=== PATIENT | female | born 1935 | race Caucasian/White ===

== ENCOUNTER 2024-05-02 11:49 | Inpatient (IN) | payer MEDICARE, BC, SELFPAY ==
[2024-05-01 14:11] VITALS: BP 111/63
[2024-05-01 14:43] LABS: Urine Albumin Negative (Neg - Trace); Urine Bilirubin Negative (Negative); Urine Character Clear (Clear); Urine Color Yellow; Urine Glucose Negative (Negative); Urine Ketone Negative (Negative); Urine Leukocyte Negative (Negative); Urine Nitrite Positive (Negative); Urine Occult Blood Negative (Negative); Urine Urobilinogen Negative (Neg - 1+)
[2024-05-01 14:49] LABS: % Basophils 0.5 % (0-2); % Immature Granulocytes 0.3 % (0-0.5); % Lymphocytes 30.4 % (20.5-51.1); % Monocytes 9.6 % (1.7-9.3); % Neutrophils 52.2 % (42.2-75.2); Absolute Eosinophils 0.4 10^3/uL (0-0.7); Absolute Lymphocytes 1.9 10^3/uL (1.2-3.4); Absolute Monocytes 0.6 10^3/uL (0.1-0.6); Absolute Neutrophils 3.3 10^3/uL (1.4-6.5); Hematocrit 34.3 % (37.0-47.0); Hemoglobin 11.7 g/dL (12.0-16.0); Mean Corp Hgb Conc. 34.1 g/dL (33.0-37.0); Mean Corpuscular Hgb 29.7 pg (27.0-31.0); Mean Corpuscular Volume 87.1 fL (81.0-99.0); Mean Platelet Volume 9.1 fL (7.4-10.4); Nucleated Red Blood Cells % 0 %; Platelet Count 206 10^3/uL (130-400); Red Blood Cell Count 3.94 10^6/uL (4.20-5.40); Red Cell Dist. Width 13.2 % (11.5-14.5); White Blood Cell Count 6.3 10^3/uL (4.8-10.8)
[2024-05-01 14:59] LABS: Urine Squamous Cell 0-2 /LPF (Few)
[2024-05-01 15:00] LABS: Urine Bacteria Many (Negative); Urine Red Blood Cell 0-2 /HPF (0-2); Urine White Cell 0-2 /HPF (0-5)
[2024-05-01 15:10] LABS: ALT (SGPT) 17 U/L (0-35); AST (SGOT) 22 U/L (14-36); Alkaline Phosphatase 89 U/L (38-126); Blood Urea Nitrogen 25 mg/dl (7-17); Calcium 8.9 mg/dl (8.4-10.2); Carbon Dioxide 22 mmol/L (22-30); Chloride 105 mmol/L (98-107); Glucose 137 mg/dl (70-99); Potassium 3.7 mmol/L (3.5-5.1); Sodium 141 mmol/L (135-145); Total Bilirubin 0.3 mg/dl (0.2-1.3); Total Protein 6.4 g/dl (6.3-8.2); eGFR > 60.00
[2024-05-01 15:30] VITALS: BP 124/66
[2024-05-01 15:56] VITALS: BMI 34.7
--- NOTE | 2024-05-01 16:10 | ED.GENMED ---
History of Present Illness
General
Chief Complaint: Fatigue
Source: fdc
Exam Limitations: none
Time Seen by Provider: 05/01/24 15:15
Nursing documentation reviewed up to this point in time: agreed with
History of Present Illness
History of Present Illness:
88 yr old female sent by [employer] at [place] for change in MS. I spoke with nurse at [facility] who reports that pt has mild dementia however this morning was more confused than normal.
Patient presents awake alert she tells me she has had a cough and she is tired.
Patient is unable to give any other history. She does follow commands and attempts to answer questions.
Past History
Past History
ED Past Medical History: Cancer, Hypercholesterolemia and Hypothyroidism
ED Past Surgical History: Gynecological and Other (Breast surgery)
Patient has exhibited threatening behavior?: No
PSI?: No
Review of Systems
Review of Systems
Allergies reviewed?: Yes
Unable to obtain full review of systems at this time due to: dementia
All Other Systems: ROS reviewed and negative except as documented in HPI and ROS
Constitutional: Reports fatigue
EENT: Reports no symptoms
Respiratory: Reports cough
Cardiac: Reports no symptoms
ABD/GI: Reports no symptoms
Musculoskeletal: Reports no symptoms
Skin: Reports no symptoms
Neurological: Reports other (change in mental status as per nurse at [facility] )
Psychiatric: Reports no symptoms
Phy Exam
General Physical Exam
General Presentation: no apparent distress
General age: appears stated age
General Skin: warm and dry
General Habitus: elderly
General Mental: alert
General Hydration: dry mucous membranes
Cardiovascular Exam
Cardiovascular Exam: regular rate/rhythm, no murmur and normal peripheral pulses
Pulmonary Exam
Pulmonary Exam: lungs clear and no respiratory distress
Neurological Exam
Neurological Exam: alert and oriented x3
Musculoskeletal Exam
Musculoskeletal Exam: full ROM
Skin Exam
Skin Exam: normal color and warm/dry
Psychiatric Exam
Psychiatric Exam: normal mood/affect
Course
Orders/Labs/Results
Orders:
Orders
05/01/24 14:26
Urinalysis Reflex To Culture Urgent
Date Specimen was Collected: 05/01/24
Time Specimen was Collected: 14:22
Urine Microscopic Reflex Cult Urgent
Urine Culture Urgent
JOÉS Source: U
Specimen Description:
Date Specimen was Collected: 05/01/24
Time Specimen was Collected: 14:22
05/01/24 14:38
Complete Blood Count/With Diff Urgent
Comprehensive Metabolic Panel Urgent
05/01/24 Dinner
Regular
05/01/24 16:15
Chest [CR Chest - 2 Views ] Urgent
Comment:
Reason For Exam: cough
05/01/24 16:18
COVID-19 Antigen Urgent
Source: Nasal Swab
Influenza A+B Rapid Molecular Urgent
JOSÉ Source: Nasal Swab
Specimen Description:
05/01/24 16:20
CT Head W/o Iv Contrast Urgent
Comment:
Reason For Exam: change in ms
05/01/24 17:01
0.9% Sodium Chloride 500 ml [Nss] 500 ml IV BOLUS
05/01/24 18:11
CefTRIAXone [Rocephin] 1,000 mg IV NOW STA
05/01/24 18:14
Azithromycin 500 mg/250 ml [Zithromax Infusion] 500 mg in 250 ml IV NOW
05/01/24 19:16
Admit/Transfer Patient As Directed
Co-Sign Provider:
Level of Care: Observation services
Assign to:: Medical/Surgical
Physician / Group: Yves Majano
Diagnosis: Pneumonia/bronchitis
Code Status As Directed
Resuscitation Status: Full Code
PRN Pain Medication Management As Directed
May give lesser potent ordered pain med per pt: Yes
preference::
Protocol:: Medication orders for pain may be administered in a
manner that supports deferring to patient preference
when the pt is:
- Requesting an ordered lesser potent pain medication.
Least to most potent pain medications are defined
as: acetaminophen < NSAID < tramadol < opioids
(morphine, oxycodone, hydromorphone).
- Requesting a lesser dose of the same medication IF
ORDERED.
- Requesting a less intrusive route of administration
if both routes are prescribed by the provider (PO <
IV).
05/01/24 19:20
US Periph Venous LOWER Ext LT Urgent
Comment:
Reason For Exam: LLE edema
05/01/24 19:28
Procalcitonin Routine
PCT Algorithmm Indication: Respiratory
05/01/24 20:36
TSH Routine
Azithromycin 500 mg IVPB Q24H
Ipratropium/Albuterol Sulfate [Duoneb] 3 ml INH R Q4HPRN PRN
Activity As Directed
Activity Level: Out of Bed-Early Mobility
Intake/ Output As Directed
Frequency: Per unit guidelines
Vital Signs As Directed
Frequency: Per unit guidelines
Weight As Directed
Frequency: Once
Comment: on admission
Pt Eval And Treat Routine
Activity Level: With Assistance
DX Deep Vein Thrombosis Video Routine
05/02/24 06:00
Basic Metabolic Panel IN AM
Complete Blood Count/No Diff IN AM
05/02/24 18:00
Enoxaparin Sodium [Lovenox] 40 mg SC QPM
Abnormal Lab Results
05/01/24 05/01/24
14:26 14:38
RBC 3.94 L 10^6/uL
(4.20-5.40)
Hgb 11.7 L g/dL
(12.0-16.0)
Hct 34.3 L %
(37.0-47.0)
Monocytes % 9.6 H %
(1.7-9.3)
Eosinophils % 7.0 H %
(0-6)
BUN 25 H mg/dl
(7-17)
Glucose 137 H mg/dl
(70-99)
Urine Nitrite (Reflex) Positive A
(Negative)
Urine Bacteria (Reflex) Many A
(Negative)
05/01/24 14:38
05/01/24 14:38
Vital Signs
Initial and Last Documented VS:
Initial Vital Signs
Temp Pulse Resp BP Pulse Ox
97.6 F 80 16 111/63 93
05/01/24 14:11 05/01/24 14:11 05/01/24 14:11 05/01/24 14:11 05/01/24 14:11
Last Documented Vital Signs
Temp Pulse Resp BP Pulse Ox
97.6 F 82 19 149/80 95
05/01/24 14:11 05/01/24 19:16 05/01/24 19:16 05/01/24 19:16 05/01/24 15:30
MDM/Problems Addressed
MDM/Problems Addressed:
Patient is an 88-year-old female from [facility] at [place] who presented for increasing confusion fatigue. Patient presents awake alert she is oriented to me and answering questions she complains of fatigue and cough. X-ray shows mild bibasilar
interstitial pneumonitis. With symptoms and fatigue will admit and treat with antibiotics. ct head neg
*Radiology
Radiology exam reviewed: radiology read reviewed
*Pulse Oximetry
Patient hypoxic: no
*Critical Care Note
Total Time (30-74mins, 75-104mins- exclusive of procedures): Not Applicable
ED Attending Note
-
Portions of this chart may have been created with voice recognition software.� Occasional wrong word or��sound alike� substitutions may have occurred due to the inherent limitations of voice recognition software.
Discharge Plan
Departure
Patient Disposition: Admit
Date of Disposition: 05/01/24
Time of Disposition: 18:50
Admit to: Med/Surg
Admit to doctor: hospitalits
Presentation/result/management discussed w/ accepting MD/DO: Hospitalist
Patient with high blood pressure during this ER visit?: No
Condition: Fair
Covid-19: Not Applicable
Discharge Problem:
Pneumonia
Interventions
Interventions:
*Risk Screen - Suicide Last Done: 05/01/24 14:20
*General Assessment Last Done: 05/01/24 14:20
*Neglect/Abuse Screening Last Done: 05/01/24 14:20
ED- Fall Risk Assessment Last Done: 05/01/24 16:28
*Nursing Disposition Last Done: 05/01/24 20:12
ED- Cardiac Assessment Last Done: 05/01/24 15:30
ED- Pulmonary Assessment Last Done: 05/01/24 15:30
[2024-05-01 16:38] LABS: COVID-19 Antigen Negative (Negative)
[2024-05-01] MEDS: NSS 500 IV (17:24)
--- NOTE | 2024-05-01 18:35 | HPS.HSE ---
Family Physician
-
Family Physician: * NONE
Chief Complaint
-
Change in mental status
History of Present Illness
Patient is an 88-year-old female with past medical history significant for hyperlipidemia and hypothyroidism who presented to [place] ED for evaluation of dementia, hyperlipidemia and hypothyroidism who was sent to [place] ED for evaluation of
change in mental status. Patient was unable to recall reasons that facility staff sent her to ED for evaluation.
Medical History
Past Medical History
Past Medical History: Reports Other
Additional Past Medical History:
Dementia
Hyperlipidemia
Hypothyroidism
Breast cancer
Past Surgical History: Reports Other
Additional Past Surgical History:
Right breast lumpectomy
hysterectomy
B/L knee replacement
Social History
Unable to obtain full social history at this time due to: Dementia
Family History
Family History: Unable to Obtain (dementia)
Allergies / Home Medications
Allergies reflects when Allergies were last updated in [employer].
Home Medications with original date entered in [employer]
Allergy/Medication List:
Allergies
Allergy/AdvReac Type Severity Reaction Status Date / Time
aspirin [From Aggrenox] Allergy Vomiting Verified 05/01/24 14:12
dipyridamole [From Aggrenox] Allergy Vomiting Verified 05/01/24 14:12
ibuprofen [From Motrin] Allergy Vomiting Verified 05/01/24 14:12
oxycodone Allergy Vomiting Verified 05/01/24 14:12
Home Medications
cholecalciferol (vitamin D3) 50 mcg (2,000 unit) tablet 2,000 unit PO DAILY 07/29/14
aspirin 81 mg tablet,delayed release 81 mg PO DAILY 05/01/24
carboxymethylcellulose sodium 0.5 % eye drops (Refresh Tears) 1 drp BOTH EYES QID 05/01/24
docusate sodium 100 mg capsule (Colace) 200 mg PO HS 05/01/24
duloxetine 20 mg capsule,delayed release 20 mg PO DAILY 05/01/24
duloxetine 60 mg capsule,delayed release 60 mg PO DAILY 05/01/24
gabapentin 400 mg capsule 400 mg PO TID 05/01/24
hydrochlorothiazide 25 mg tablet 25 mg PO DAILY 05/01/24
levothyroxine 75 mcg tablet 74 mcg PO DAILY 05/01/24
losartan 50 mg tablet 50 mg PO HS 05/01/24
melatonin 3 mg tablet 3 mg PO HS 05/01/24
meloxicam 15 mg tablet 15 mg PO DAILY 05/01/24
metoprolol succinate 25 mg tablet,extended release 24 hr 25 mg PO DAILY 05/01/24
rosuvastatin 5 mg tablet 5 mg PO QPM 05/01/24
sennosides 8.6 mg tablet (senna) 17.2 mg PO HS 05/01/24
vit C 250 mg-vit E 90 mg-zinc 40 mg-copper 1 lo-lixzkh-zfupaq capsule (PreserVision AREDS-2) 1 cap PO BID 05/01/24
Review of Systems
-
Unable to obtain full review of systems at this time due to: Dementia
Physical Exam
Vital Signs
Vital Signs
Temp Pulse Resp BP Pulse Ox
97.6 F 82 16 124/66 95
05/01/24 14:11 05/01/24 15:30 05/01/24 15:30 05/01/24 15:30 05/01/24 15:30
Physical Exam
General: Well Developed, Well Nourished, No Apparent Distress, Comfortable and Conversant
HEENT: NormoCephalic, Moist mucous membranes, Atraumatic, PERRLA, Nose Appears Normal and Ears Appear Normal
Respiratory: Wheezes, Non Labored Respirations and Decreased Breath Sounds
Cardiac: S1/S2 and Regular Rhythm; No Murmur, Rub or Gallop
Breast: Deferred by me
GI: Soft, Non Tender, Non Distended and Normal Bowel Sounds; No Organomegaly
Rectal: Deferred by Provider
Genito-urinary: Deferred by me
Musculoskeletal: No Clubbing, No Cyanosis and No Edema
Skin: Warm, Dry and IV/Catheter Site; No Rash
Neuro: Awake, Alert and Nonfocal/grossly intact
Hematologic/Lymphatic: No Lymphadenopathy
Psych: Calm and Confused
Laboratory Results
-
05/01/24 14:38
05/01/24 14:38
Laboratory Results
Total Bilirubin 0.3 mg/dl (0.2-1.3) 05/01/24 14:38
AST 22 U/L (14-36) 05/01/24 14:38
ALT 17 U/L (0-35) 05/01/24 14:38
Alkaline Phosphatase 89 U/L (38-126) 05/01/24 14:38
Data Reviewed
-
Diagnostic Radiology: Report Reviewed by me (CXR: Suspect mild bibasilar interstitial pneumonitis.)
CT Scan: Report Reviewed by me (Head: No acute intracranial abnormality noted.)
Lab Data: Labs Reviewed by me
Impression/Plan
-
IMPRESSION/PLAN:
#Pneumonia vs. bronchitis
- Admit to M/S
- check ProCal
- IV Azithromycin
- PRN DuoNebs
#Lower left extremity edema
- cellulitis? DVT?
- LLE US pending
#Dementia
- continue duloxetine
#Hyperlipidemia
- pravastatin
#Hypothyroidism
- check TSH
- continue Synthroid
#Breast cancer
Full Code
DVT Px: Lovenox Sq
--- NOTE | 2024-05-01 18:55 | W.PN.UPDATE ---
Update Note
Progress Note Update
Patient seen in conjunction with THEODORA. I agree with her findings on history and physical. I concur with the assessment and plan unless stated otherwise.
This is a 88 y/o female with history of hypothyroid, mild demential, hld presenting from assisted living with confusion compared to baseline. She reports fatigue and cough for about 1-1/2 weeks. She says the cough is nonproductive. She also
reports some nasal congestion. Denies any sore throat. She reports fatigue but no shortness of breath or dyspnea on exertion at rest. She states she is mostly sleepy and tired. She reports recent falls and fracture of the left femur s/p surgery.
Has had pain and swelling in the left leg since. Reports ambulatory dysfunction, pain with weight bearing and some redness over the ankle. Itchy and she has been scratching it. Denies history of tobacco use, asthma or COPD. She denies any chest
pain, lightheadedness or dizziness. Denies swallowing difficulties. There has been no recent diarrhea.
In the emergency department the patient was afebrile, blood pressure was normal at 124/66, pulse was 68 and she was satting at 95% on room air. # X-ray shows bibasilar interstitial pneumonitis, CT head was negative, CBC was unremarkable with a
white count of 6.3 hemoglobin of 11.7 and platelet count of 200. Electrolytes BUN/creatinine were within normal limits. UA was mostly negative with bacteria and nitrites but no leukocyte esterase or pyuria. Influenza and COVID are negative.
On my exam she has bibasilar end expiratory wheezes and squeaks. There is left ankle edema and mild erythema with tenderness to palpation
A&P
1. PNA - bilateral pneumonitis on Xray. Suspect bronchitis with some reactive component and end expiratory tightness. Not on oxygen, denies SOB at rest. No fevers, chills or leukocytosis.
- admit to med/surg
- azithromycin iv for now
- nebs, incentive spirometry
- check procalcitonin
2. Ankle Swelling - S/P knee surgery. Leg edema and ankle erythema
- check LLE u/s
- keep leg elevated
- no obvious cellulitis but serial examination reasonable
3. Hypothyroid - fatigue and sleepiness
- check tsh
- continue synthroid
PT eval
DVT PPX - lovenox sq
Code - Status - awaiting documents, presumptive full code
[2024-05-01 19:16] VITALS: BP 149/80
[2024-05-01] MEDS: ROCEPHIN 1000 MG IV (19:18)
[2024-05-01] MEDS: ZITHROMAX INFUSION 250 IV (19:18)
[2024-05-01 20:03] LABS: Procalcitonin < 0.05 ng/ml (0.0-0.25)
--- NOTE | 2024-05-01 20:23 | PHANOTE ---
med rec tech(05/01/24)-Attempted to get paperwork faxed over, called 18:42,19:27,19:38, and called back by snf, but unable to successfully fax over medications. Utilized [employer] to compile list.
[2024-05-01 20:55] VITALS: BP 152/86; BMI 34.2
--- NOTE | 2024-05-01 21:00 | PTCARENOTE ---
Patient arrived from the ED via stretcher. Patient pulled over onto the bed by staff. Incontinent of urine, purewick in place. Patient AAOx3, forgetful. VSS. Patient is currently nauseous and vomiting. [employer] made aware. Antiemetic ordered see MAR.
Patient oriented to the room , educated on plan of care. Takes pills fine with water. Call chandler is within reach.
[2024-05-01] MEDS: COZAAR 50 MG PO (21:39)
[2024-05-01] MEDS: REGLAN 10 MG IV (21:40)
[2024-05-01 23:00] LABS: TSH 2.24 uIU/ml (0.47-4.68)
[2024-05-01 23:13] VITALS: BP 145/67
[2024-05-02 07:24] VITALS: BP 114/75
--- NOTE | 2024-05-02 07:24 | W.PN.HOSP.TC ---
Today's Communication/Plan
-
PT/OT
Fall precautions
discharge planning SNF rehab
IV azithromycin switched to PO
Blood Pressure control
Assessment / Plan
Assessment / Plan
Physical Exam
General: No Apparent Distress, Comfortable and Conversant, Obese
HEENT: NormoCephalic, Moist mucous membranes, Atraumatic, PERRLA
Respiratory: clear to auscultation b/l
Cardiac: S1/S2 and Regular Rhythm; No Murmur, Rub or Gallop
GI: Soft, Non Tender, Non Distended and Bowel sounds present
Musculoskeletal: No Clubbing, No Cyanosis and No Edema
Skin: Warm, Dry and IV/Catheter Site; No Rash
Neuro:AOx3 though some confusion memory issues noted
Psych: Calm, cooperative, mild confusion
88F with past medical history significant for hyperlipidemia and hypothyroidism who presented to [place] ED for evaluation dementia, hyperlipidemia and hypothyroidism, sent to [place] ED for evaluation of AMS. Patient was unable to recall
reasons that facility staff sent her to ED for evaluation.
#Pneumonia vs. bronchitis
- ProCal neg
- IV Azithromycin switched to PO 250 mg daily for anti-inflammatory effects
- PRN DuoNebs
-stable respiratory status room air
#Lower left extremity edema noted on ED presentation per reports, appears resolved at this time.
#Hx Lt knee replacement
- LLE US appreciated no DVT
-PT/OT appreciated SNF rehab
#Dementia
- continue duloxetine
#Hyperlipidemia
- pravastatin
#Hypothyroidism
- TSH wnl
- continue Synthroid
#Breast cancer
Full Code
DVT Px: Lovenox Sq
I spent a total of 35 minutes with the patient or on the floor. More than 50% of this time involved counseling and coordination of care.
Anticipated Discharge: Within 24 hours
Subjective/Interval History
-
Date of Service: May 02, 2024
No acute distress appears well denies new acute issues at this time. AOx3 though some confusion short term memory issues noted.
Objective Data
-
Labs:
Laboratory Results
05/02/24
06:00
WBC Pending
Hgb Pending
Hct Pending
Plt Count Pending
Sodium Pending
Potassium Pending
Chloride Pending
Carbon Dioxide Pending
BUN Pending
Creatinine Pending
Glucose Pending
Calcium Pending
Vital Signs:
Vital Signs
Temp Pulse Resp BP Pulse Ox
98.0 F 84 18 145/67 92
05/01/24 23:13 05/01/24 23:13 05/01/24 23:13 05/01/24 23:13 05/01/24 23:13
[2024-05-02] MEDS: ORETIC 25 MG PO (07:49)
[2024-05-02] MEDS: ASPIR LOW (ENTERIC COATED) 81 MG PO (07:49)
[2024-05-02] MEDS: TOPROL XL 25 MG PO (07:49)
[2024-05-02] MEDS: SYNTHROID 75 MCG PO (07:50)
[2024-05-02 08:12] LABS: Hematocrit 33.7 % (37.0-47.0); Hemoglobin 11.1 g/dL (12.0-16.0); Mean Corp Hgb Conc. 32.9 g/dL (33.0-37.0); Mean Corpuscular Hgb 30.3 pg (27.0-31.0); Mean Corpuscular Volume 92.1 fL (81.0-99.0); Mean Platelet Volume 9.2 fL (7.4-10.4); Platelet Count 201 10^3/uL (130-400); Red Blood Cell Count 3.66 10^6/uL (4.20-5.40); Red Cell Dist. Width 13.3 % (11.5-14.5); White Blood Cell Count 5.3 10^3/uL (4.8-10.8)
[2024-05-02 08:56] LABS: Blood Urea Nitrogen 25 mg/dl (7-17); Calcium 8.7 mg/dl (8.4-10.2); Carbon Dioxide 26 mmol/L (22-30); Chloride 104 mmol/L (98-107); Estimated Creatinine Clearance 60 ml/min; Glucose 114 mg/dl (70-99); Potassium 3.7 mmol/L (3.5-5.1); Sodium 142 mmol/L (135-145); eGFR > 60.00
[2024-05-02 09:30] VITALS: BP 118/72; PULSE 77; O2SAT 95
[2024-05-02 15:44] VITALS: BP 133/82
--- NOTE | 2024-05-02 16:37 | CM ---
Late note from this morning:
Miriam lives at [facility] and was hoping to go back at discharge. CM met with Miriam to discuss discharge plans; spoke with Mynor, her POA, who is agreeable to SNF and requests [facility] or [facility].
CM to follow for SNF transfer when medically ready.
[2024-05-02] MEDS: LOVENOX 40 MG SC (17:06)
[2024-05-02] MEDS: ZITHROMAX 250 MG PO (17:07)
--- NOTE | 2024-05-02 17:21 | PTCARENOTE ---
Patient confused, states she wants to go home. Pt removed IV. No IV medications ordered at this time. Bed alarm on. Plan of care ongoing.
[2024-05-02] MEDS: TIGAN 200 MG IM (20:12)
[2024-05-02] MEDS: COZAAR PO (21:53)
[2024-05-02 23:26] VITALS: BP 129/85
[2024-05-03] MEDS: ZOFRAN ODT (ORALLY DISINTEGRATING) 2 MG PO (02:15)
[2024-05-03] MEDS: DULCOLAX 10 MG RECTAL (02:46)
--- NOTE | 2024-05-03 07:21 | W.PN.HOSP.TC ---
Today's Communication/Plan
-
pain control
PT/OT
discharge planning SNF rehab
Assessment / Plan
Assessment / Plan
Physical Exam
General: No Apparent Distress, Comfortable and Conversant, Obese
HEENT: NormoCephalic, Moist mucous membranes, Atraumatic, PERRLA
Respiratory: clear to auscultation b/l
Cardiac: S1/S2 and Regular Rhythm; No Murmur, Rub or Gallop
GI: Soft, Non Tender, Non Distended and Bowel sounds present
Musculoskeletal: No Clubbing, No Cyanosis and No Edema
Skin: Warm, Dry and IV/Catheter Site; No Rash
Neuro:AOx3 though some confusion memory issues noted
Psych: Calm, cooperative, mild confusion
88F with past medical history significant for hyperlipidemia and hypothyroidism who presented to [place] ED for evaluation dementia, hyperlipidemia and hypothyroidism, sent to [place] ED for evaluation of AMS. Patient was unable to recall
reasons that facility staff sent her to ED for evaluation.
#Pneumonia vs. bronchitis
- ProCal neg
- IV Azithromycin switched to PO 250 mg daily for anti-inflammatory effects planned for total 5 days treatment (05/05 last day)
- PRN DuoNebs
-stable respiratory status room air
#Lower left extremity edema noted on ED presentation per reports, appears resolved at this time.
#Hx Lt knee replacement
- LLE US appreciated no DVT
-PT/OT appreciated SNF rehab
#Neuropathy
home pain meds resumed duloxetine, gabapentin, meloxicam
#Dementia
#Hyperlipidemia
- pravastatin
#Hypothyroidism
- TSH wnl
- continue Synthroid
#Breast cancer
PT/OT appreciated SNF rehab
Full Code
DVT Px: Lovenox Sq
Medically stable for discharge pending SNF rehab placement
discussed with patient and patient's nephew AMPARO Lowe
I spent a total of 35 minutes with the patient or on the floor. More than 50% of this time involved counseling and coordination of care.
Anticipated Discharge: Within 24 hours
Subjective/Interval History
-
Date of Service: May 03, 2024
No acute distress resting comfortably in bed. Reports lower extremities pain burning likely neuropathy. Home pain meds resumed.
Objective Data
-
Vital Signs:
Vital Signs
Temp Pulse Resp BP Pulse Ox
98.3 F 81 17 129/85 97
05/02/24 23:26 05/02/24 23:26 05/02/24 23:26 05/02/24 23:26 05/02/24 23:26
I&O
05/02/24 05/03/24 05/04/24
06:59 06:59 06:59
Intake Total 600 / 600
Output Total 500 / 500
Balance 100 / 100
[2024-05-03 07:35] VITALS: BP 152/84
[2024-05-03] MEDS: SYNTHROID 75 MCG PO (08:13)
[2024-05-03] MEDS: ORETIC 25 MG PO (08:13)
[2024-05-03] MEDS: ASPIR LOW (ENTERIC COATED) 81 MG PO (08:13)
[2024-05-03] MEDS: TOPROL XL 25 MG PO (08:13)
--- NOTE | 2024-05-03 09:39 | PTOTSP ---
Speech Therapy Swallowing Assessment
No overt signs of aspiration during bedside assessment.
Recommend
1. Continue regular solids and thin liquids
2. Meds with liquid as tolerated.
3. General swallowing precautions including upright position and slow rate of intake.
No skilled ST indicated at this time.
[2024-05-03] MEDS: CYMBALTA DELAYED RELEASE 60 MG PO (10:26)
[2024-05-03] MEDS: NEURONTIN 400 MG PO ×3 (10:26→21:05)
[2024-05-03] MEDS: CYMBALTA DELAYED RELEASE 20 MG PO (10:26)
[2024-05-03] MEDS: MOBIC 15 MG PO (10:26)
[2024-05-03] MEDS: REFRESH CELLUVISC GEL 1 DROPS BOTH EYES ×3 (12:29→21:05)
[2024-05-03 15:02] VITALS: BP 152/58; PULSE 80
[2024-05-03 15:20] VITALS: BP 150/94
--- NOTE | 2024-05-03 17:11 | CM ---
CM met with Miriam and spoke with her POA regarding discharge plans. SNF is requested, [facility] and [facility]. Referrals sent via [facility].
CM to follow to coordinate SNF when medically ready.
[2024-05-03] MEDS: LOVENOX 40 MG SC (17:12)
[2024-05-03] MEDS: ZITHROMAX 250 MG PO (17:12)
[2024-05-03] MEDS: COLACE 200 MG PO (21:06)
[2024-05-03] MEDS: COZAAR 50 MG PO (21:07)
[2024-05-03] MEDS: SENOKOT 17.2 MG PO (21:07)
[2024-05-03 23:39] VITALS: BP 160/91
[2024-05-04 06:58] LABS: Hemoglobin 11.6 g/dL (12.0-16.0); Mean Corp Hgb Conc. 33.1 g/dL (33.0-37.0); Mean Corpuscular Hgb 29.7 pg (27.0-31.0); Mean Corpuscular Volume 89.5 fL (81.0-99.0); Mean Platelet Volume 9.5 fL (7.4-10.4); Platelet Count 227 10^3/uL (130-400); Red Blood Cell Count 3.91 10^6/uL (4.20-5.40); Red Cell Dist. Width 13.3 % (11.5-14.5); White Blood Cell Count 5.5 10^3/uL (4.8-10.8)
[2024-05-04 07:30] VITALS: BP 135/80
[2024-05-04 07:37] LABS: Blood Urea Nitrogen 23 mg/dl (7-17); Calcium 9.3 mg/dl (8.4-10.2); Carbon Dioxide 30 mmol/L (22-30); Chloride 101 mmol/L (98-107); Estimated Creatinine Clearance 53 ml/min; Glucose 124 mg/dl (70-99); Phosphorus 4.4 mg/dl (2.5-4.5); Potassium 3.8 mmol/L (3.5-5.1); Sodium 141 mmol/L (135-145); eGFR > 60.00
--- NOTE | 2024-05-04 07:40 | W.PN.HOSP.TC ---
Today's Communication/Plan
-
medically stable for discharge SNF rehab pending placement
Assessment / Plan
Assessment / Plan
Physical Exam
General: No Apparent Distress, Comfortable and Conversant, Obese
HEENT: NormoCephalic, Moist mucous membranes, Atraumatic, PERRLA
Respiratory: clear to auscultation b/l
Cardiac: S1/S2 and Regular Rhythm; No Murmur, Rub or Gallop
GI: Soft, Non Tender, Non Distended and Bowel sounds present
Musculoskeletal: No Clubbing, No Cyanosis and No Edema
Skin: Warm, Dry and IV/Catheter Site; No Rash
Neuro:AOx3 though some confusion memory issues noted
Psych: Calm, cooperative, mild confusion
88F with past medical history significant for hyperlipidemia and hypothyroidism who presented to [place] ED for evaluation dementia, hyperlipidemia and hypothyroidism, sent to [place] ED for evaluation of AMS. Patient was unable to recall
reasons that facility staff sent her to ED for evaluation.
#Pneumonia vs. bronchitis
- ProCal neg
- IV Azithromycin switched to PO 250 mg daily for anti-inflammatory effects planned for total 5 days treatment (05/05 last day)
- PRN DuoNebs
-stable respiratory status room air
#Lower left extremity edema noted on ED presentation per reports, appears resolved at this time.
#Hx Lt knee replacement
- LLE US appreciated no DVT
-PT/OT appreciated SNF rehab
#Neuropathy
home pain meds resumed duloxetine, gabapentin, meloxicam
#Dementia
#Hyperlipidemia
- pravastatin
#Hypothyroidism
- TSH wnl
- continue Synthroid
#Breast cancer
PT/OT appreciated SNF rehab
Full Code
DVT Px: Lovenox Sq
Medically stable for discharge pending SNF rehab placement
discussed with patient and patient's nephew AMPARO Lowe
I spent a total of 35 minutes with the patient or on the floor. More than 50% of this time involved counseling and coordination of care.
Anticipated Discharge: Within 24 hours
Subjective/Interval History
-
Date of Service: May 04, 2024
No acute distress. Appears comfortable at this time. Lower extremities pain improved. No new acute issues.
Objective Data
-
Labs:
Laboratory Results
05/04/24
05:58
WBC 5.5
Hgb 11.6 L
Hct 35.0 L
Plt Count 227
Sodium 141
Potassium 3.8
Chloride 101
Carbon Dioxide 30
BUN 23 H
Creatinine 0.9
Glucose 124 H
Calcium 9.3
Vital Signs:
Vital Signs
Temp Pulse Resp BP Pulse Ox
97.8 F 79 18 160/91 93
05/03/24 23:39 05/03/24 23:39 05/03/24 23:39 05/03/24 23:39 05/03/24 23:39
I&O
05/03/24 05/04/24 05/05/24
06:59 06:59 05:59
Intake Total 600 / 600 360 / 360
Output Total 500 / 500
Balance 100 / 100 360 / 360
[2024-05-04] MEDS: VITAMIN D3 (cholecalciferol) 50 MCG PO (08:24)
[2024-05-04] MEDS: MOBIC 15 MG PO (08:24)
[2024-05-04] MEDS: REFRESH CELLUVISC GEL 1 DROPS BOTH EYES ×4 (08:24→20:22)
[2024-05-04] MEDS: CYMBALTA DELAYED RELEASE 60 MG PO (08:24)
[2024-05-04] MEDS: ASPIR LOW (ENTERIC COATED) 81 MG PO (08:24)
[2024-05-04] MEDS: ORETIC 25 MG PO (08:24)
[2024-05-04] MEDS: CYMBALTA DELAYED RELEASE 20 MG PO (08:24)
[2024-05-04] MEDS: NEURONTIN 400 MG PO ×3 (08:24→20:23)
[2024-05-04] MEDS: TOPROL XL 25 MG PO (08:24)
[2024-05-04] MEDS: SYNTHROID 75 MCG PO (08:25)
[2024-05-04 15:30] VITALS: BP 139/79
[2024-05-04] MEDS: ZITHROMAX 250 MG PO (17:17)
[2024-05-04] MEDS: LOVENOX 40 MG SC (17:17)
[2024-05-04] MEDS: SENOKOT 17.2 MG PO (20:22)
[2024-05-04] MEDS: COZAAR 50 MG PO (20:22)
[2024-05-04] MEDS: COLACE 200 MG PO (20:23)
[2024-05-04 23:46] VITALS: BP 128/74
--- NOTE | 2024-05-05 06:40 | W.PN.HOSP.TC ---
Today's Communication/Plan
-
Medically stable for discharge pending SNF rehab placement
Assessment / Plan
Assessment / Plan
Physical Exam
General: No Apparent Distress, Comfortable and Conversant, Obese
HEENT: NormoCephalic, Moist mucous membranes, Atraumatic, PERRLA
Respiratory: clear to auscultation b/l
Cardiac: S1/S2 and Regular Rhythm; No Murmur, Rub or Gallop
GI: Soft, Non Tender, Non Distended and Bowel sounds present
Musculoskeletal: No Clubbing, No Cyanosis and No Edema
Skin: Warm, Dry and IV/Catheter Site; No Rash
Neuro:AOx3 though some confusion memory issues noted
Psych: Calm, cooperative, mild confusion
88F with past medical history significant for hyperlipidemia and hypothyroidism who presented to [facility] for evaluation dementia, hyperlipidemia and hypothyroidism, sent to [facility] for evaluation of AMS. Patient was unable to recall
reasons that facility staff sent her to ED for evaluation.
#Pneumonia vs. bronchitis
- ProCal neg
- IV Azithromycin switched to PO 250 mg daily for anti-inflammatory effects planned for total 5 days treatment (05/05 last day) completed
- PRN DuoNebs
-stable respiratory status room air
#Lower left extremity edema noted on ED presentation per reports, appears resolved at this time.
#Hx Lt knee replacement
- LLE US appreciated no DVT
-PT/OT appreciated SNF rehab
#Neuropathy
home pain meds resumed duloxetine, gabapentin, meloxicam
#Dementia
#Hyperlipidemia
- pravastatin
#Hypothyroidism
- TSH wnl
- continue Synthroid
#Breast cancer
PT/OT appreciated SNF rehab
Full Code
DVT Px: Lovenox Sq
Medically stable for discharge pending SNF rehab placement
discussed with patient and patient's nephew AMPARO Lowe
I spent a total of 35 minutes with the patient or on the floor. More than 50% of this time involved counseling and coordination of care.
Anticipated Discharge: Within 24 hours
Subjective/Interval History
-
Date of Service: May 05, 2024
No acute distress. Appears comfortable at this time. Denies new acute issues. Pain well controlled with current regimen
Objective Data
-
Vital Signs:
Vital Signs
Temp Pulse Resp BP Pulse Ox
98.4 F 77 18 128/74 93
05/04/24 23:46 05/04/24 23:46 05/04/24 23:46 05/04/24 23:46 05/04/24 23:46
I&O
05/03/24 05/04/24 05/05/24
06:59 06:59 05:59
Intake Total 600 / 600 360 / 360 480 / 480
Output Total 500 / 500 1700 / 1700
Balance 100 / 100 360 / 360 -1220 / -1220
[2024-05-05 07:58] VITALS: BP 170/87
[2024-05-05] MEDS: REFRESH CELLUVISC GEL 1 DROPS BOTH EYES ×4 (08:09→21:05)
[2024-05-05] MEDS: TOPROL XL 25 MG PO (08:09)
[2024-05-05] MEDS: CYMBALTA DELAYED RELEASE 60 MG PO (08:09)
[2024-05-05] MEDS: CYMBALTA DELAYED RELEASE 20 MG PO (08:09)
[2024-05-05] MEDS: NEURONTIN 400 MG PO ×3 (08:09→21:05)
[2024-05-05] MEDS: ORETIC 25 MG PO (08:09)
[2024-05-05] MEDS: ASPIR LOW (ENTERIC COATED) 81 MG PO (08:09)
[2024-05-05] MEDS: MOBIC 15 MG PO (08:09)
[2024-05-05] MEDS: SYNTHROID 75 MCG PO (08:10)
[2024-05-05] MEDS: VITAMIN D3 (cholecalciferol) 50 MCG PO (08:10)
[2024-05-05] MEDS: NORVASC 2.5 MG PO (12:05)
[2024-05-05 15:55] VITALS: BP 154/79
[2024-05-05] MEDS: ZITHROMAX 250 MG PO (17:31)
[2024-05-05] MEDS: LOVENOX 40 MG SC (17:31)
[2024-05-05] MEDS: SENOKOT 17.2 MG PO (21:05)
[2024-05-05] MEDS: COZAAR 50 MG PO (21:05)
[2024-05-05] MEDS: COLACE 200 MG PO (21:05)
[2024-05-05 23:26] VITALS: BP 113/67
[2024-05-06 07:41] VITALS: BP 138/80
[2024-05-06] MEDS: NEURONTIN 400 MG PO ×3 (08:10→20:43)
[2024-05-06] MEDS: ASPIR LOW (ENTERIC COATED) 81 MG PO (08:10)
[2024-05-06] MEDS: VITAMIN D3 (cholecalciferol) 50 MCG PO (08:10)
[2024-05-06] MEDS: TOPROL XL 25 MG PO (08:10)
[2024-05-06] MEDS: ORETIC 25 MG PO (08:10)
[2024-05-06] MEDS: NORVASC 2.5 MG PO (08:10)
[2024-05-06] MEDS: MOBIC 15 MG PO (08:11)
[2024-05-06] MEDS: CYMBALTA DELAYED RELEASE 60 MG PO (08:11)
[2024-05-06] MEDS: CYMBALTA DELAYED RELEASE 20 MG PO (08:11)
[2024-05-06] MEDS: REFRESH CELLUVISC GEL 1 DROPS BOTH EYES ×4 (08:11→20:47)
[2024-05-06] MEDS: SYNTHROID 75 MCG PO (08:11)
--- NOTE | 2024-05-06 08:50 | PTCARENOTE ---
pt aaao3 forgetful. states pain in left leg repositioned. room air breath sounds clear. pt has dry cough non productive.
--- NOTE | 2024-05-06 08:59 | CM ---
Referral had been sent on Monday via [facility], however no responses received from [facility] or [facility] as of this AM.
CM contacted [facility] and left a VM this am requesting return call to discuss short term rehab. Multiple calls to [facility] with no answer.
CM to follow up later with both facilities.
[2024-05-06 11:11] VITALS: BP 123/78; PULSE 71; O2SAT 97
[2024-05-06 11:15] VITALS: BP 123/78; PULSE 71; O2SAT 97
--- NOTE | 2024-05-06 11:53 | W.PN.HOSP.TC ---
Addendum entered and electronically signed by Joel Thomas MD 05/06/24 15:38:
Time of discharge 37 minutes
Original Note:
Today's Communication/Plan
-
Monitor vital signs
see plan
Discharge pending placement
Assessment / Plan
Assessment / Plan
Physical Exam
General: No Apparent Distress, Comfortable and Conversant, Obese
HEENT: NormoCephalic, Moist mucous membranes
Respiratory: clear to auscultation b/l
Cardiac: S1/S2 and Regular Rhythm; No Murmur, Rub or Gallop
GI: Soft, Non Tender, Non Distended and Bowel sounds present
Musculoskeletal: No Edema
Neuro:AOx3 though some confusion memory issues noted
Psych: Calm, cooperative, mild confusion
88F with past medical history significant for hyperlipidemia and hypothyroidism who presented to [facility] for evaluation dementia, hyperlipidemia and hypothyroidism, sent to [facility] ED for evaluation of AMS. Patient was unable to recall
reasons that facility staff sent her to ED for evaluation.
#Pneumonia vs. bronchitis
- ProCal neg
- IV Azithromycin switched to PO 250 mg daily for anti-inflammatory effects planned for total 5 days treatment (05/05 last day) completed
- PRN DuoNebs
-stable respiratory status room air
#Lower left extremity edema noted on ED presentation per reports, appears resolved at this time.
#Hx Lt knee replacement
- LLE US appreciated no DVT
-PT/OT appreciated SNF rehab
#Neuropathy
home pain meds resumed duloxetine, gabapentin, meloxicam
#Dementia
#Hyperlipidemia
- pravastatin
#Hypothyroidism
- TSH wnl
- continue Synthroid
#Breast cancer
PT/OT appreciated SNF rehab
Full Code
DVT Px: Lovenox Sq
Medically stable for discharge pending SNF rehab placement
Anticipated Discharge: Today
Subjective/Interval History
-
Date of Service: May 06, 2024
Denies nausea
Objective Data
-
Vital Signs:
Vital Signs
Temp Pulse Resp BP Pulse Ox
97.8 F 72 18 138/80 97
05/06/24 07:41 05/06/24 08:10 05/06/24 07:41 05/06/24 08:10 05/06/24 07:41
I&O
05/05/24 05/06/24 05/07/24
06:59 06:59 06:59
Intake Total 720 / 720
Output Total 900 / 900
Balance -180 / -180
[2024-05-06 14:47] VITALS: BP 117/67
--- NOTE | 2024-05-06 14:56 | CM ---
CM spoke with Juana at [facility] and faxed the referral, as it never came through [facility]. Bed is available pending acceptance.
Await call back with final acceptance.
--- NOTE | 2024-05-06 15:03 | CM ---
Addendum entered by Jemima Tejeda 05/06/24 15:32:
RAJ notified of acceptance for SNF transfer to [facility] today. TT sent to Dr. Thomas re: same.
Report: [phone]

Original Note:
RAJ spoke with Juana at [facility] who has a bed available; she is waiting for administrative approval for the admission.
RAJ continues to follow to coordinate transfer to SNF.
--- NOTE | 2024-05-06 15:38 | W.DCSUMMARY ---
Discharge Summary
Discharge Data
Date of Admission: 05/02/24
Date of Discharge: 05/07/24
-
Pending Results: No
Hospital Course
88-year-old female with past medical history of neuropathy, dementia, hyperlipidemia, hypothyroidism, breast cancer came to the hospital with ambulatory dysfunction and acute bronchitis. Patient symptoms continue to improve after azithromycin. She
was also evaluation by physical therapy with recommended SNF. Once her symptoms continue to improve, she was then discharged to rehab with instructions to follow-up with all her physicians outpatient.
Discharge Plan
-
Patient Disposition: Longterm/SNF
Discharge Diagnosis/Procedures: Acute bronchitis
Left lower extremity edema
Neuropathy
Ambulatory dysfunction
Diet: As tolerated
Activity: With assistance and As tolerated
Driving Restrictions: As prior to admission
Bathing Restrictions: None
Other Services: PT and OT
Referrals:
NONE,* [Family Provider] - in less than 1 week
Prescriptions:
New
amlodipine 2.5 mg Tablet
2.5 mg PO DAILY Qty: 0 0RF
Continued
cholecalciferol (vitamin D3) 2,000 UNIT tablet
2,000 unit PO DAILY
losartan 50 mg tablet
50 mg PO HS
sennosides [senna] 8.6 mg tablet
17.2 mg PO HS
meloxicam 15 mg tablet
15 mg PO DAILY
gabapentin 400 mg capsule
400 mg PO TID
aspirin 81 mg tablet,delayed release (DR/EC)
81 mg PO DAILY
levothyroxine 75 mcg tablet
74 mcg PO DAILY
carboxymethylcellulose sodium [Refresh Tears] 0.5 % drops
1 drp BOTH EYES QID
docusate sodium [Colace] 100 mg Capsule
200 mg PO HS
hydrochlorothiazide 25 mg tablet
25 mg PO DAILY
metoprolol succinate 25 mg tablet extended release 24 hr
25 mg PO DAILY
rosuvastatin 5 mg tablet
5 mg PO QPM
duloxetine 20 mg capsule,delayed release(DR/EC)
20 mg PO DAILY
Rx Instructions:
take with 60mg for total of 80mg
duloxetine 60 mg capsule,delayed release(DR/EC)
60 mg PO DAILY
Rx Instructions:
take with 20mg for total of 80mg
PreserVision AREDS-2 250-90-40-1 mg capsule
1 cap PO BID
Discontinued
melatonin 3 mg Tablet
3 mg PO HS
Discharge Orders:
Discharge Patient (As Directed); Ordered 05/06/24
Ordered By: Joel Thomas
Discharge Date and Time
Discharge Date/Time: 05/07/24 09:30
Print Language: MALAY
--- NOTE | 2024-05-06 16:15 | CM ---
Ambulance transport requested for transfer to [facility]. Call to AMPARO Lowe, to notify him of same and agreeable to same. Transport time is 1900 via ambulance.
Plan: Transfer to [facility] today at 1900 via ambulance.
Report: [phone]
--- NOTE | 2024-05-06 16:51 | PTCARENOTE ---
hand picker time for pt changed to 1999. spoke to Ju[facility] at [facility] new hand picker time of 1999 will be too late for them due to pharmacy issues. she said they will hold the bed for the patient. receiving room clerk will try and set up a morning hand picker
tomorrow.
[2024-05-06] MEDS: LOVENOX 40 MG SC (17:45)
[2024-05-06] MEDS: COZAAR 50 MG PO (20:43)
[2024-05-06] MEDS: SENOKOT 17.2 MG PO (20:46)
[2024-05-06] MEDS: COLACE 200 MG PO (20:47)
[2024-05-06 23:44] VITALS: BP 119/87
[2024-05-07 07:29] VITALS: BP 121/69
[2024-05-07] MEDS: CYMBALTA DELAYED RELEASE 20 MG PO (07:54)
[2024-05-07] MEDS: ASPIR LOW (ENTERIC COATED) 81 MG PO (07:54)
[2024-05-07] MEDS: CYMBALTA DELAYED RELEASE 60 MG PO (07:54)
[2024-05-07] MEDS: TOPROL XL 25 MG PO (07:54)
[2024-05-07] MEDS: NORVASC 2.5 MG PO (07:54)
[2024-05-07] MEDS: SYNTHROID 75 MCG PO (07:55)
[2024-05-07] MEDS: VITAMIN D3 (cholecalciferol) 50 MCG PO (07:55)
[2024-05-07] MEDS: MOBIC 15 MG PO (07:55)
[2024-05-07] MEDS: NEURONTIN 400 MG PO (07:55)
[2024-05-07] MEDS: ORETIC 25 MG PO (07:56)
[2024-05-07] MEDS: REFRESH CELLUVISC GEL 1 DROPS BOTH EYES (08:05)
[2024-05-07] MEDS: DULCOLAX 10 MG RECTAL (08:09)
--- NOTE | 2024-05-07 09:52 | W.PN.HOSP.TC ---
Addendum entered and electronically signed by Joel Thomas MD 05/10/24 10:29:
Asymptomatic bacteruria
Addendum entered and electronically signed by Joel Thomas MD 05/07/24 13:19:
There was no pneumonia. Patient had acute bronchitis
Original Note:
Today's Communication/Plan
-
Monitor vital signs see plan
Discharge held yesterday due to transport, discharge today
Time of discharge 37 minutes
Assessment / Plan
Assessment / Plan
Physical Exam
General: No Apparent Distress, Comfortable and Conversant, Obese
HEENT: NormoCephalic, Moist mucous membranes
Respiratory: clear to auscultation b/l
Cardiac: S1/S2 and Regular Rhythm; No Murmur, Rub or Gallop
GI: Soft, Non Tender, Non Distended and Bowel sounds present
Musculoskeletal: No Edema
Neuro:AOx3 though some confusion memory issues noted
Psych: Calm, cooperative, mild confusion
88F with past medical history significant for hyperlipidemia and hypothyroidism who presented to [facility] for evaluation dementia, hyperlipidemia and hypothyroidism, sent to [facility] ED for evaluation of AMS. Patient was unable to recall
reasons that facility staff sent her to ED for evaluation.
#Pneumonia vs. bronchitis
- ProCal neg
- IV Azithromycin switched to PO 250 mg daily for anti-inflammatory effects planned for total 5 days treatment (05/05 last day) completed
- PRN DuoNebs
-stable respiratory status room air
#Lower left extremity edema noted on ED presentation per reports, appears resolved at this time.
#Hx Lt knee replacement
- LLE US appreciated no DVT
-PT/OT appreciated SNF rehab
#Neuropathy
home pain meds resumed duloxetine, gabapentin, meloxicam
#Dementia
#Hyperlipidemia
- pravastatin
#Hypothyroidism
- TSH wnl
- continue Synthroid
#Breast cancer
PT/OT appreciated SNF rehab
Full Code
DVT Px: Lovenox Sq
Medically stable for discharge pending SNF rehab placement
Anticipated Discharge: Today
Subjective/Interval History
-
Date of Service: May 07, 2024
Denies pain
Objective Data
-
Vital Signs:
Vital Signs
Temp Pulse Resp BP Pulse Ox
98.4 F 74 18 129/82 97
05/07/24 07:29 05/07/24 07:54 05/07/24 07:29 05/07/24 07:54 05/07/24 07:29
I&O
05/06/24 05/07/24 05/08/24
06:59 06:59 06:59
Intake Total 720 / 720 760 / 760
Output Total 900 / 900 950 / 950
Balance -180 / -180 -190 / -190
--- NOTE | 2024-05-07 09:59 | CM ---
RAJ contacted by Juana from the [facility] this am regarding discharge from last evening. Juana had agreed on discharge last evening at 1900, however time was moved to 1999 and the facility felt it was too late for admission. RAJ was not
notified of this change, as it occurred after I had left for the day.
--- NOTE | 2024-05-07 13:03 | PN.CDI ---
CDI
- -
CDI:
Physician Documentation Request
Admit Date: 05/02/24 11:49
Dear Doctor William,
Please review the following and provide your response in the progress notes.
Clinical Indicators:
The diagnosis of pneumonia was documented on 05/07 PN but not on the DC Summary.
- 05/07 PN 'Pneumonia vs. bronchitis'
- 05/07 DC Summary 'came to the hospital with ambulatory dysfunction and acute bronchitis'
- IV abx Azithromycin, Ceftriaxone given
- 05/01 CXR 'Suspect mild bibasilar interstitial pneumonitis'
Please clarify the following:
____ - Pneumonia was present on admission and is now resolved.
____ - Pneumonia was ruled out
____ - Other
Use of terms such as suspected, likely, concern for, or probable (associated with a specific diagnosis that is being evaluated, monitored, or treated as if it exists) are acceptable and can be coded in the inpatient setting, when documented at the
time of discharge.
Thank you,
Roni Rutherford RN
CDI Specialist
Please use your independent medical judgment in providing your response.
--- NOTE | 2024-05-08 08:03 | PN.CDI ---
CDI
- -
CDI:
Physician Documentation Request
Admit Date: 05/02/24 11:49
Dear Doctor William,
Please review the following and provide your response in the progress notes.
Clinical Indicators:
- 05/01 urine culture positive with E coli and Aerococcus
- IV abx Azithromycin
Please clarify the diagnosis with the urine culture findings
UTI
Asymptomatic bacteruria
Other (please specify)
Use of terms such as suspected, likely, concern for, or probable (associated with a specific diagnosis that is being evaluated, monitored, or treated as if it exists) are acceptable and can be coded in the inpatient setting, when documented at the
time of discharge.
Thank you,
Roni Rutherford RN
CDI Specialist
Please use your independent medical judgment in providing your response.
== END 2024-05-07 09:30 | DRG 203 ==
LOC: 4 EAST ACU 11:49
PROVIDERS: Internal Medicine; Nurse Practitioner; Nurse Practitioner Family; ADMITTING PHYSICIAN Internal Medicine; ATTENDING PHYSICIAN Internal Medicine; EMERGENCY PHYSICIAN Student in an Organized Health Care Education/Training Program
DX: J20.9 Acute bronchitis, unspecified (principal); E03.9 Hypothyroidism, unspecified; F03.A0 Unspecified dementia, mild, without behavioral disturbance, psychotic disturbance, mood disturbance, and anxiety; E78.00 Pure hypercholesterolemia, unspecified; G62.9 Polyneuropathy, unspecified; R26.2 Difficulty in walking, not elsewhere classified; R60.0 Localized edema; R82.71 Bacteriuria; Z96.653 Presence of artificial knee joint, bilateral; Z79.82 Long term (current) use of aspirin; Z79.890 Hormone replacement therapy; Z79.899 Other long term (current) drug therapy; Z85.3 Personal history of malignant neoplasm of breast; Z90.710 Acquired absence of both cervix and uterus; Z88.5 Allergy status to narcotic agent; Z88.6 Allergy status to analgesic agent; Z88.8 Allergy status to other drugs, medicaments and biological substances; Z11.52 Encounter for screening for COVID-19
CPT/HCPCS: 51701; 70450; 71046; 80048; 80053; 81003; 81015; 83735; 84100; 84145; 84443; 85025; 85027; 87077; 87086; 87186; 87502; 87811; 92610; 93971; 96365; 96375; 97110; 97162; 97167; 97530; 99285

== ENCOUNTER 2024-06-29 17:46 | Emergency (ER) | payer MEDICARE, BC, SELFPAY ==
[2024-06-29 17:55] VITALS: BP 155/82
[2024-06-29 17:56] VITALS: BMI 35.1
--- NOTE | 2024-06-29 18:10 | ED.GENMED ---
History of Present Illness
General
Chief Complaint: Fall
Source: patient
Exam Limitations: none
Time Seen by Provider: 06/29/24 17:52
Nursing documentation reviewed up to this point in time: agreed with
History of Present Illness
History of Present Illness:
89-year-old female presents Emergency Department after a fall. It was unwitnessed. She states she was reaching for her phone and somehow tripped. She denies loss of consciousness. She complains of neck pain and left-sided rib pain.
Past History
Past History
ED Past Medical History: Cancer, Hypercholesterolemia and Hypothyroidism
ED Past Surgical History: Gynecological and Other (Breast surgery)
Patient has exhibited threatening behavior?: No
PSI?: No
Social History
Tobacco: Non-smoker
Alcohol: None
Drug: None
Living: senior living
Employment: Retired
Review of Systems
Review of Systems
Allergies reviewed?: Yes
All Other Systems: Not applicable
Constitutional: Reports no symptoms; Denies fever
EENT: Reports no symptoms
Respiratory: Reports no symptoms
Cardiac: Reports no symptoms
ABD/GI: Reports no symptoms
: Reports no symptoms
Musculoskeletal: Reports neck pain and other (Chest wall pain)
Skin: Reports no symptoms
Neurological: Reports no symptoms
Endocrine: Reports no symptoms
Hematologic/Lymphatic: Reports no symptoms
Psychiatric: Reports no symptoms
Phy Exam
Physical Exam
Physical Exam:
Physical Exam
General: no apparent distress, not acutely ill, afebrile
Neck: supple. no meningeal signs. normal posterior pharynx, mild tenderness to palpation at C2, c-collar in place
Heart: s1/s2 regular rate and rhythm, no murmur. equal radial
pulses.
HEENT: Pupils equal round reactive to light, EOMI
Lungs: no acute respiratory distress. clear bilaterally, mild tenderness to palpation at left eighth rib
Abdomen: normal bowel sounds. not tender. no CVAT
Neuro: alert and oriented to person and place. no focal neurological deficits cranial nerves II through XII intact
Skin: no rash
Psychiatric: well kept. interactive and cooperative
Extremities: no edema. no calf tenderness. negative homans. good distal pulses
Course
Orders/Labs/Results
Orders:
Orders
06/29/24 18:12
CT Cervical Spine W/o Iv Contr Urgent
Comment:
Reason For Exam: fall, neck pain, ttp at C2
CT Head W/o Iv Contrast Urgent
Comment:
Reason For Exam: fall, unwitnessed
Cardiac Monitoring- Treatment ONCE
Ribs, Left 3 View W/PA Chest CR [CR Ribs-left 3 Vw W/pa Chest] Urgent
Comment:
Reason For Exam: left side rib pain, fall
06/29/24 18:15
CR Pelvis - 1 Or 2 Views Urgent
Comment:
Reason For Exam: fall
Vital Signs
Initial and Last Documented VS:
Initial Vital Signs
Temp Pulse Pulse Ox
97.8 F 77 96
06/29/24 17:47 06/29/24 17:47 06/29/24 17:47
Last Documented Vital Signs
Temp Pulse BP Pulse Ox
97.8 F 77 155/82 95
06/29/24 17:47 06/29/24 17:47 06/29/24 17:55 06/29/24 19:18
MDM/Problems Addressed
Differential Diagnosis Includes:
Cervical spine fracture, rib fracture, pneumothorax, intracranial hemorrhage
MDM/Problems Addressed:
89-year-old female with fall, left sided chest contusion. No fracture or pneumothorax seen. C-spine CAT scan concerning for possible C4 fracture, but reviewed with Dr. Benny Abreu, neurosurg who does not suspect it is a fracture, patient also
denies neck pain at this time. Full range of motion without pain.
Chronic conditions affecting care: Other (Dementia)
*Radiology
Radiology exam reviewed: preliminary read by ED provider (Chest x-ray no acute findings, pelvis x-ray no acute findings) and radiology read reviewed (CT cervical spine shows linear lucency through right C4 superior articular process, CT head no
acute findings)
*Pulse Oximetry
Patient hypoxic: no
*Critical Care Note
Total Time (30-74mins, 75-104mins- exclusive of procedures): Not Applicable
Patient Management
Social determinants of health affecting care: Living situation
Discussion with other providers: Legal Receptionist (Discussed with neurosurgery, Dr. Benny Abreu, who does not suspect a cervical spine fracture)
Escalation/DeEscalation of care consider admission/obs:
Admission not indicated
ED Attending Note
-
Portions of this chart may have been created with voice recognition software.� Occasional wrong word or��sound alike� substitutions may have occurred due to the inherent limitations of voice recognition software.
Discharge Plan
Departure
Patient Disposition: Detention/SNF
Date of Disposition: 06/29/24
Time of Disposition: 21:39
Patient with high blood pressure during this ER visit?: Yes
Condition: Good
Discharge Problem:
Chest wall contusion, Fall
Instructions: Contusion (DC), Preventing falls in adults, BLOOD PRESSURE
Prescriptions:
No Action
cholecalciferol (vitamin D3) 2,000 UNIT tablet
2,000 unit PO DAILY
losartan 50 mg tablet
50 mg PO HS
sennosides [senna] 8.6 mg tablet
17.2 mg PO HS
meloxicam 15 mg tablet
15 mg PO DAILY
gabapentin 400 mg capsule
400 mg PO TID
aspirin 81 mg tablet,delayed release (DR/EC)
81 mg PO DAILY
levothyroxine 75 mcg tablet
74 mcg PO DAILY
carboxymethylcellulose sodium [Refresh Tears] 0.5 % drops
1 drp BOTH EYES QID
docusate sodium [Colace] 100 mg Capsule
200 mg PO HS
hydrochlorothiazide 25 mg tablet
25 mg PO DAILY
metoprolol succinate 25 mg tablet extended release 24 hr
25 mg PO DAILY
rosuvastatin 5 mg tablet
5 mg PO QPM
duloxetine 20 mg capsule,delayed release(DR/EC)
20 mg PO DAILY
Rx Instructions:
take with 60mg for total of 80mg
duloxetine 60 mg capsule,delayed release(DR/EC)
60 mg PO DAILY
Rx Instructions:
take with 20mg for total of 80mg
PreserVision AREDS-2 250-90-40-1 mg capsule
1 cap PO BID
amlodipine 2.5 mg Tablet
2.5 mg PO DAILY Qty: 0 0RF
Referrals:
Francis Orlando DO [Active] - Call in 1-3 days for appt
Jorge Valencia DO [Family Provider] -
Interventions
Interventions:
*General Assessment Last Done: 06/29/24 17:57
*Neglect/Abuse Screening Last Done: 06/29/24 17:57
ED- Fall Risk Assessment Last Done: 06/29/24 17:57
*ED COVID-19 Vaccine History Last Done: 06/29/24 17:57
ED-Musculoskeletal Assessment Last Done: 06/29/24 17:57
ED- Neurological Assessment Last Done: 06/29/24 17:57
ED-Skin Assessment Last Done: 06/29/24 17:57
Discharge Date and Time
Print Language: MACEDONIAN
[2024-06-29 22:19] VITALS: BP 147/81
== END 2024-06-29 22:50 ==
LOC: EMR 17:46
PROVIDERS: EMERGENCY PHYSICIAN Emergency Medicine; FAMILY PHYSICIAN Internal Medicine
DX: S20.212A Contusion of left front wall of thorax, initial encounter (principal); M54.2 Cervicalgia; W01.0XXA Fall on same level from slipping, tripping and stumbling without subsequent striking against object, initial encounter; E03.9 Hypothyroidism, unspecified; E78.00 Pure hypercholesterolemia, unspecified
CPT/HCPCS: 99284; 70450; 71101; 72125; 72170

== ENCOUNTER → 2024-08-09 13:28 | Outpatient (REF) | payer MEDICARE, BC, SELFPAY ==
[2024-08-09 15:00] LABS: Blood Urea Nitrogen 31 mg/dl (7-17); Calcium 8.3 mg/dl (8.4-10.2); Carbon Dioxide 26 mmol/L (22-30); Chloride 100 mmol/L (98-107); Glucose 137 mg/dl (70-99); Potassium 3.5 mmol/L (3.5-5.1); Sodium 138 mmol/L (135-145); eGFR > 60.00
== END ==
LOC: OLABPATH 13:28
PROVIDERS: ATTENDING PHYSICIAN Internal Medicine
DX: R79.0 Abnormal level of blood mineral (principal)
CPT/HCPCS: 36415; 80048

== ENCOUNTER → 2025-02-05 11:24 | Outpatient (REF) | payer MEDICARE, BC, SELFPAY ==
[2025-02-05 12:36] LABS: Hematocrit 38.0 % (37.0-47.0); Hemoglobin 12.7 g/dL (12.0-16.0); Mean Corp Hgb Conc. 33.4 g/dL (33.0-37.0); Mean Corpuscular Volume 91.3 fL (81.0-99.0); Nucleated Red Blood Cells % 0 %; Platelet Count 230 10^3/uL (130-400); Red Cell Dist. Width 13.2 % (11.5-14.5)
[2025-02-05 13:24] LABS: ALT (SGPT) 17 U/L (0-35); AST (SGOT) 22 U/L (14-36); Albumin 4.1 g/dl (3.5-5.0); Alkaline Phosphatase 75 U/L (38-126); Blood Urea Nitrogen 21 mg/dl (7-17); Calcium 8.8 mg/dl (8.4-10.2); Carbon Dioxide 25 mmol/L (22-30); Chloride 107 mmol/L (98-107); Glucose 161 mg/dl (70-99); Potassium 3.5 mmol/L (3.5-5.1); Sodium 142 mmol/L (135-145); Total Protein 6.6 g/dl (6.3-8.2); eGFR > 60.00
== END ==
LOC: OLABPATH 11:24
PROVIDERS: ATTENDING PHYSICIAN Internal Medicine
DX: R79.9 Abnormal finding of blood chemistry, unspecified (principal); R05.1 Acute cough
CPT/HCPCS: 36415; 80053; 85025

== ENCOUNTER → 2025-04-24 11:09 | Outpatient (REF) | payer MEDICARE, BC, SELFPAY ==
[2025-04-24 12:35] LABS: ALT (SGPT) 13 U/L (0-35); AST (SGOT) 18 U/L (14-36); Albumin 3.1 g/dl (3.5-5.0); Alkaline Phosphatase 68 U/L (38-126); Blood Urea Nitrogen 21 mg/dl (7-17); Calcium 8.6 mg/dl (8.4-10.2); Carbon Dioxide 29 mmol/L (22-30); Chloride 105 mmol/L (98-107); Glucose 105 mg/dl (70-99); Potassium 3.6 mmol/L (3.5-5.1); Sodium 139 mmol/L (135-145); Total Protein 5.4 g/dl (6.3-8.2); eGFR > 60.00
[2025-04-24 13:11] LABS: Hematocrit 32.9 % (37.0-47.0); Hemoglobin 10.7 g/dL (12.0-16.0); Mean Corp Hgb Conc. 32.5 g/dL (33.0-37.0); Mean Corpuscular Volume 92.2 fL (81.0-99.0); Nucleated Red Blood Cells % 0 %; Platelet Count 196 10^3/uL (130-400); Red Cell Dist. Width 13.7 % (11.5-14.5)
== END ==
LOC: OLABPATH 11:09
PROVIDERS: ATTENDING PHYSICIAN Internal Medicine
DX: E78.5 Hyperlipidemia, unspecified (principal); K81.0 Acute cholecystitis
CPT/HCPCS: 36415; 80053; 85025